=== PATIENT | female | born 1990 | race American Indian/Alaskan Native ===

== ENCOUNTER 2017-02-07 11:01 | Emergency (ER) | payer SELFPAY ==
[2017-02-07 11:38] VITALS: BP 134/82
[2017-02-07 12:18] LABS: Bacteria,Urine 1+ /HPF (Negative); Bilirubin,Urine NEG (Negative); Blood,Urine NEG (Negative); Ketones,Urine NEG (Negative); Leukocyte Esterase,Urine SM (Negative); Mucus,Urine FEW /HPF; Nitrite,Urine NEG (Negative); Protein,Urine <15 mg/dL mg/dL (Negative); Urobilinogen,Urine < 2.0 mg/dL (<2.0)
--- NOTE | 2017-02-07 15:35 | Emergency Department Report ---
ED Female HPI - General Chief complaint: Urogenital-Female Stated complaint: IRRITATION IN GENITAL AREA Time Seen by Provider: 02/07/17 14:57 Source: patient Mode of arrival: Ambulatory Limitations: No Limitations - History of Present Illness Initial comments: 26-year-old female past medical history trichomonas, vaginitis presents with complaint of vaginal irritation for 2-3 days with whitish vaginal discharge. Patient states last menstrual period was on 01/14. Patient denies fevers chills or abdominal pain but does complain of vaginal irritation. MD Complaint: vaginal discharge, possible STD Onset/Timin -: days(s) Severity: moderate Severity scale (0 -10): 4 Quality: burning Improves with: none Are you Now?: No Last Menstrual Period: 01/14/17 EDC: 10/21/17 - Related Data Previous Rx's Medication Instructions Recorded Last Taken Type Clotrimazole/Betamethasone Dip 1 applicatio TP QHS #1 cream..g. 02/07/17 Unknown Rx [Clotrimazole-Betamethasone Crm] metroNIDAZOLE [Flagyl] 500 mg PO Q12HR #14 tab 02/07/17 Unknown Rx Allergies Allergy/AdvReac Type Severity Reaction Status Date / Time No Known Allergies Allergy Unverified 02/07/17 11:33 ED Review of Systems ROS: Stated complaint: IRRITATION IN GENITAL AREA Other details as noted in HPI Constitutional: denies: chills, fever Eyes: denies: eye pain, eye discharge, vision change ENT: denies: ear pain, throat pain Respiratory: denies: cough, shortness of breath, wheezing Cardiovascular: denies: chest pain, palpitations Endocrine: no symptoms reported Gastrointestinal: denies: abdominal pain, nausea, diarrhea Genitourinary: discharge (whitish vag discharge, vag irritation). denies: urgency, dysuria Musculoskeletal: denies: back pain, joint swelling, arthralgia Skin: denies: rash, lesions Neurological: denies: headache, weakness, paresthesias Psychiatric: denies: anxiety, depression Hematological/Lymphatic: denies: easy bleeding, easy bruising ED Past Medical Hx - Past Medical History Previous Medical History?: Yes Additional medical history: STD, Trichomaonas Vaginitis - Surgical History Past Surgical History?: No - Social History Smoking Status: Never Smoker Substance Use Type: Alcohol, Marijuana - Medications Home Medications: Home Medications Medication Instructions Recorded Confirmed Last Taken Type Clotrimazole/Betamethasone Dip 1 applicatio TP QHS #1 cream..g. 02/07/17 Unknown Rx [Clotrimazole-Betamethasone Crm] metroNIDAZOLE [Flagyl] 500 mg PO Q12HR #14 tab 02/07/17 Unknown Rx ED Physical Exam - General Limitations: No Limitations General appearance: alert, in no apparent distress - Head Head exam: Present: atraumatic, normocephalic - Eye Eye exam: Present: normal appearance, PERRL, EOMI - ENT ENT exam: Present: mucous membranes moist - Neck Neck exam: Present: normal inspection - Respiratory Respiratory exam: Present: normal lung sounds bilaterally. Absent: respiratory distress - Cardiovascular Cardiovascular Exam: Present: regular rate, normal rhythm. Absent: systolic murmur, diastolic murmur, rubs, gallop - GI/Abdominal GI/Abdominal exam: Present: soft, normal bowel sounds - External exam: Present: normal external exam Speculum exam: Present: vaginal discharge (whitsh vaginal discharge on exam, clumopy, cottage cheese like) Bi-manual exam: Present: normal bi-manual exam - Extremities Exam Extremities exam: Present: normal inspection - Back Exam Back exam: Present: normal inspection - Neurological Exam Neurological exam: Present: alert, oriented X3, CN II-XII intact, normal gait - Psychiatric Psychiatric exam: Present: normal affect, normal mood - Skin Skin exam: Present: warm, dry, intact, normal color. Absent: rash ED Course Vital Signs 02/07/17 11:33 Temperature 98.7 F Pulse Rate 74 Respiratory 16 Rate Blood Pressure 134/82 O2 Sat by Pulse 100 Oximetry ED Medical Decision Making - Medical Decision Making A/P: Clinical vaginitis 1-GC cultures sent, wet prep sent. Results negative but will treat patient based on clinical symptoms 2-pt referred to [facility] 3-not , no clincial hx suggestive of UTI, UA unremarkable, pelvic exam only shows discharge, no CMT or adnexal pain Critical care attestation.: If time is entered above; I have spent that time in minutes in the direct care of this critically ill patient, excluding procedure time. ED Disposition Clinical Impression: Vaginitis Qualifiers: Chronicity: acute Qualified Code(s): N76.0 - Acute vaginitis Disposition: TO HOME OR SELFCARE Is pt being admited?: No Does the pt Need Aspirin: No Condition: Stable Instructions: Bacterial Vaginosis (ED), Vaginitis (ED) Prescriptions: Clotrimazole/Betamethasone Dip [Clotrimazole-Betamethasone Crm] 1 applicatio TP QHS #1 cream..g. metroNIDAZOLE [Flagyl] 500 mg PO Q12HR #14 tab Referrals: [facility] [Provider Group] - 3-5 Days [facility] [Provider Group] - 3-5 Days Forms: Work/School Release Form(ED) Time of Disposition: 18:30
[2017-02-07] MEDS ORDERED: ZITHROMAX PO ONE (17:34)
[2017-02-07] MEDS ORDERED: XYLOCAINE 1% MPF 5 mL INFILTRATI ONE (17:34)
[2017-02-07] MEDS ORDERED: ROCEPHIN IM ONE (17:34)
== END 2017-02-07 18:38 | disposition home or self-care (01) ==
LOC: ED 11:01
DX: N76.0 Acute vaginitis (principal); F12.10 Cannabis abuse, uncomplicated
CPT/HCPCS: 81001; 81025; 87210; 87591; 96372; 99284; J0696

== ENCOUNTER 2018-02-28 23:45 | Emergency (ER) | payer SELFPAY ==
[2018-03-01 00:27] LABS: HCG Qualitative,Urine Negative (Negative)
--- NOTE | 2018-03-01 01:23 | XRay Report ---
FINAL REPORT EXAM: XR CHEST ROUTINE 2V HISTORY: JOHNNA TECHNIQUE: Three views of the chest were submitted. FINDINGS: Heart size and mediastinum appear normal. The lungs are clear. Pleural fluid is not seen. The skeletal structures reveal a minimal dextroscoliosis of the thoracolumbar junction. IMPRESSION: No acute cardiopulmonary process.
[2018-03-01] MEDS ORDERED: MOTRIN PO ONE (01:50)
--- NOTE | 2018-03-01 01:51 | Emergency Department Report ---
- General Chief Complaint: Sore Throat Stated Complaint: JOHNNA/THROAT PAIN Time Seen by Provider: 03/01/18 01:44 Source: patient Mode of arrival: Ambulatory Limitations: No Limitations - History of Present Illness Initial Comments: 28-year-old -Iranian female comes in for sore throat and shortness of breathing 2 days. Patient denies any fever or chills. She admits to sneezing a lot and nasal congestion with runny nose. MD Complaint: sore throat, rhinorrhea, nasal congestion, other (wheezing) -: days(s) (2) Consistency: intermittent Improves With: nothing Worsens With: nothing Associated Symptoms: rhinorrhea, nasal congestion, sore throat, cough, shortness of breath. denies: nausea, vomiting, diarrhea, dysuria Treatments Prior to Arrival: "cold medicine" - Related Data Previous Rx's Medication Instructions Recorded Last Taken Type Clotrimazole/Betamethasone Dip 1 applicatio TP QHS #1 cream..g. 02/07/17 Unknown Rx [Clotrimazole-Betamethasone Crm] metroNIDAZOLE [Flagyl] 500 mg PO Q12HR #14 tab 02/07/17 Unknown Rx Cetirizine HCl [ZyrTEC] 10 mg PO QDAY #30 capsule 03/01/18 Unknown Rx Fluticasone [Flonase] 1 spray NS QDAY #1 bottle 03/01/18 Unknown Rx Ibuprofen [Motrin 600 MG tab] 600 mg PO Q8H #20 tablet 03/01/18 Unknown Rx Allergies Allergy/AdvReac Type Severity Reaction Status Date / Time No Known Allergies Allergy Unverified 02/07/17 11:33 ED Review of Systems ROS: Stated complaint: JOHNNA/THROAT PAIN Other details as noted in HPI Constitutional: denies: chills, fever ENT: throat pain, congestion, other (rhinorrhea, sneezing) Respiratory: cough, shortness of breath Cardiovascular: chest pain (with coughing). denies: palpitations Endocrine: no symptoms reported Gastrointestinal: denies: abdominal pain, nausea, diarrhea Genitourinary: denies: urgency, dysuria, discharge Musculoskeletal: denies: back pain, joint swelling, arthralgia Skin: denies: rash, lesions Neurological: denies: headache, weakness, paresthesias Psychiatric: denies: anxiety, depression Hematological/Lymphatic: denies: easy bleeding, easy bruising ED Past Medical Hx - Past Medical History Previous Medical History?: Yes Additional medical history: STD, Trichomaonas Vaginitis - Surgical History Past Surgical History?: No - Social History Smoking Status: Never Smoker Substance Use Type: None - Medications Home Medications: Home Medications Medication Instructions Recorded Confirmed Last Taken Type Clotrimazole/Betamethasone Dip 1 applicatio TP QHS #1 cream..g. 02/07/17 Unknown Rx [Clotrimazole-Betamethasone Crm] metroNIDAZOLE [Flagyl] 500 mg PO Q12HR #14 tab 02/07/17 Unknown Rx Cetirizine HCl [ZyrTEC] 10 mg PO QDAY #30 capsule 03/01/18 Unknown Rx Fluticasone [Flonase] 1 spray NS QDAY #1 bottle 03/01/18 Unknown Rx Ibuprofen [Motrin 600 MG tab] 600 mg PO Q8H #20 tablet 03/01/18 Unknown Rx ED Physical Exam - General Limitations: No Limitations General appearance: alert - Head Head exam: Present: atraumatic, normocephalic - Eye Eye exam: Present: EOMI - ENT ENT exam: Present: mucous membranes moist, TM's normal bilaterally, other ( postnasal drip) - Expanded ENT Exam Expanded Throat exam: Positive: other (postnasal drip). Negative: tonsillar erythema, tonsillar exudate - Neck Neck exam: Present: full ROM. Absent: tenderness, lymphadenopathy - Respiratory Respiratory exam: Present: normal lung sounds bilaterally. Absent: respiratory distress - Cardiovascular Cardiovascular Exam: Present: regular rate, normal rhythm. Absent: systolic murmur, diastolic murmur, rubs, gallop - GI/Abdominal GI/Abdominal exam: Present: soft, normal bowel sounds - Neurological Exam Neurological exam: Present: alert, oriented X3, normal gait - Skin Skin exam: Present: warm, dry, intact, normal color. Absent: rash ED Course Vital Signs 02/28/18 23:52 Temperature 99.5 F Pulse Rate 102 H Respiratory 18 Rate Blood Pressure 108/83 O2 Sat by Pulse 98 Oximetry ED Medical Decision Making - Radiology Data Radiology results: report reviewed FINAL REPORT EXAM: XR CHEST ROUTINE 2V HISTORY: JOHNNA TECHNIQUE: Three views of the chest were submitted. FINDINGS: Heart size and mediastinum appear normal. The lungs are clear. Pleural fluid is not seen. The skeletal structures reveal a minimal dextroscoliosis of the thoracolumbar junction. IMPRESSION: No acute cardiopulmonary process. Transcribed By: RB Dictated By: RAVI ROMERO MD Electronically Authenticated By: RAVI ROMERO MD Signed Date/Time: 03/01/18121 DD/ 1 TD/TT: 03/01/18121 - Medical Decision Making Patient has been evaluated by this provider in fast track. Ibuprofen 600 mg given for pain management Chest x-ray was ordered and completed with no cardiopulmonary abnormalities. Discharge patient home with the diagnoses of allergic rhinitis. We'll discharge patient on Zyrtec Flonase. Critical care attestation.: If time is entered above; I have spent that time in minutes in the direct care of this critically ill patient, excluding procedure time. ED Disposition Clinical Impression: Allergic rhinitis Qualifiers: Allergic rhinitis trigger: unspecified Allergic rhinitis seasonality: unspecified Qualified Code(s): J30.9 - Allergic rhinitis, unspecified Disposition: - TO HOME OR SELFCARE Is pt being admited?: No Does the pt Need Aspirin: No Condition: Stable Instructions: Allergic Rhinitis (ED) Additional Instructions: Please take medication as prescribed. If her symptoms persist or gets worse please follow up with her primary care provider. Prescriptions: Cetirizine HCl [ZyrTEC] 10 mg PO QDAY #30 capsule Fluticasone [Flonase] 1 spray NS QDAY #1 bottle Ibuprofen [Motrin 600 MG tab] 600 mg PO Q8H #20 tablet Referrals: [facility] [Primary Care Provider] - 3-5 Days [facility] [Provider Group] - 3-5 Days Forms: Work/School Release Form(ED), Accompanied Note
[2018-03-01 02:15] VITALS: BP 110/60
== END 2018-03-01 02:17 | disposition home or self-care (01) ==
LOC: ED 23:45
DX: J30.9 Allergic rhinitis, unspecified (principal)
CPT/HCPCS: 71046; 81025; 87116; 87430; 99284